=== PATIENT | female | born 1995 | race African-American/Black ===

== ENCOUNTER 2024-07-12 04:26 | Inpatient (IN) | payer OTHER ==
[2024-07-11 13:43] VITALS: BMI 37.1
[2024-07-12] MEDS ORDERED: MIDAZOLAM HCL 2 MG/2 ML SINGLE DOSE VIAL ONE (12:18)
[2024-07-12] MEDS ORDERED: PROPOFOL 20 ML ONE ×2 (12:18→12:52)
[2024-07-12] MEDS ORDERED: ROCURONIUM BROMIDE 50 MG/5 ML SYRINGE ONE ×2 (12:18→13:27)
[2024-07-12] MEDS ORDERED: SUCCINYLCHOLINE CHLORIDE 200 MG/10 ML SYRINGE ONE (13:04)
[2024-07-12] MEDS ORDERED: ceFAZolin SODIUM 1 GM VIAL ONE (13:12)
[2024-07-12] MEDS: ceFAZolin SODIUM 1 GM VIAL IVPB ONE ×2 (13:12)
[2024-07-12] MEDS ORDERED: SUGAMMADEX SODIUM 200 MG/2 ML VIAL ONE (13:25)
[2024-07-12] MEDS ORDERED: NALOXONE HCL 0.4 MG/ML VIAL IVPUSH PRN (14:35)
[2024-07-12] MEDS ORDERED: ONDANSETRON 4 MG/2 ML VIAL IVPUSH PRN (14:35)
[2024-07-12] MEDS ORDERED: SIMETHICONE 80 MG TAB.CHEW (FP) PO PRN (14:38)
[2024-07-12] MEDS ORDERED: morphine SULFATE/PF 1 MG/2 ML (2cc Syringe - QUVA) IT ONE (14:45)
[2024-07-12] MEDS: LACTATED RINGERS SOLUTION 1,000 ML IV SCH (15:03)
[2024-07-12] MEDS: IBUPROFEN 800 MG/8 ML IJ IVPB PRN (15:38)
[2024-07-12 16:42] VITALS: RESP 18
[2024-07-12] MEDS: CEFAZOLIN SODIUM 2 GM in DEXTROSE 5%-WATER 100 ML IVPB ONE (18:49)
[2024-07-12] MEDS: ELECTROLYTE-148 SOLN 1,000 ML IV SCH (18:50)
[2024-07-12] MEDS: ONDANSETRON 4 MG/2 ML VIAL IVPUSH PRN (20:24)
[2024-07-12] MEDS: ACETAMINOPHEN 325 MG TABLET (FP) PO SCH (20:24)
[2024-07-12] MEDS: oxyCODONE HCL 5 MG TABLET PO PRN (20:25)
[2024-07-12] MEDS: DOCUSATE SODIUM 100 MG CAPSULE (FP) PO SCH (21:40)
[2024-07-12] MEDS: CEFAZOLIN 2 GM/D5W 2 GM/50 ML ML IVPB SCH (23:32)
[2024-07-13] MEDS ORDERED: CEFAZOLIN 2 GM/D5W 2 GM/50 ML ML IVPB SCH (02:00)
[2024-07-13] MEDS: CEFAZOLIN 2 GM/D5W 2 GM/50 ML ML IVPB SCH (02:39)
[2024-07-13 08:50] LABS: HEMOGLOBIN 11.3 GM/dL (10.7-15.3); MCH 25.8 pg (25.7-33.7); MCHC 31.3 g/dl (32.0-36.0); MEAN CELL VOLUME 82.4 fl (80-96); MEAN PLT VOLUME 8.1 fl (7.5-11.1); PLATELET COUNT 361 10^3/uL (134-434); RBC 4.37 M/mm3 (3.60-5.2); RDW 19.1 % (11.6-15.6); WHITE BLOOD COUNT 18.4 K/mm3 (4.0-10.0)
[2024-07-13 09:04] LABS: POTASSIUM 4.6 mmol/L (3.5-5.1)
[2024-07-13 09:06] LABS: ALBUMIN 3.2 g/dl (3.4-5.0); BLOOD UREA NITROGEN 6.5 mg/dL (7-18); CALCIUM 9.4 mg/dL (8.5-10.1)
[2024-07-13 09:10] LABS: CREATININE 0.7 mg/dL (0.55-1.3)
[2024-07-13 09:11] LABS: BILIRUBIN,TOTAL 0.4 mg/dL (0.2-1); TOT PROT 6.4 g/dl (6.4-8.2)
[2024-07-13] MEDS: ENOXAPARIN NA (PORCINE) 40 MG/0.4 ML DISP.SYRIN SQ SCH (09:18)
[2024-07-13] MEDS ORDERED: BISACODYL 10 MG SUPP.RECT PR PRN (14:43)
[2024-07-13] MEDS: IBUPROFEN 600 MG TABLET (FP) PO PRN (18:57)
[2024-07-14 03:22] VITALS: BP 111/64; PULSE 71; TEMP 97.7
[2024-07-14 09:36] LABS: BASO % 0.5 % (0-2.0); EOS % 1.7 % (0-4.5); HEMATOCRIT 34.7 % (32.4-45.2); HEMOGLOBIN 10.6 GM/dL (10.7-15.3); LYMPH % 26.2 % (8-40); MCH 25.7 pg (25.7-33.7); MCHC 30.7 g/dl (32.0-36.0); MEAN CELL VOLUME 83.7 fl (80-96); MEAN PLT VOLUME 8.5 fl (7.5-11.1); MONO % 6.1 % (3.8-10.2); NEUT % 65.5 % (42.8-82.8); PLATELET COUNT 345 10^3/uL (134-434); RBC 4.14 M/mm3 (3.60-5.2); RDW 18.6 % (11.6-15.6); WHITE BLOOD COUNT 12.2 K/mm3 (4.0-10.0)
== END 2024-07-14 14:09 | disposition home or self-care (01) | DRG 519 ==
LOC: J2C 04:26 → J6S 16:46
PROVIDERS: ADMIT Obstetrics & Gynecology; ATTEND Obstetrics & Gynecology
PROC: 0UT70ZZ Resection of Bilateral Fallopian Tubes, Open Approach (ICD-10-PCS; 2024-07-12)
PROC: 0UT90ZL Resection of Uterus, Supracervical, Open Approach (ICD-10-PCS; principal; 2024-07-12 12:00)
DX: D25.9 Leiomyoma of uterus, unspecified (principal); R10.2 Pelvic and perineal pain; N92.1 Excessive and frequent menstruation with irregular cycle
CPT/HCPCS: 36415; 80053; 85025; 85027; 86850; 86900; 86901; 88305-TC; 88307-TC; 94010; 94760